=== PATIENT | female | born 1990 | race Caucasian/White ===

== ENCOUNTER 2017-01-19 12:29 | Emergency (ER) | payer OTHER ==
[~2017-01-19] VITALS: Ht 157.5 cm; Wt 61.2 kg
--- NOTE | 2017-01-19 12:36 | NUR ---
AAOX3, CAME TO ER C/O L L Q ABD PAIN WITH DYSURIA X 2 DAYS. DENIES N/V/D. RESP IS EVEN AND UNLABORED WITH NAD NOTED. SKIN IS WARM AND DRY. PLACED ON HOSPITAL GOWN, PLACED ON MONITOR. AWAITING MD FOR EVAL.
[2017-01-19] MEDS ORDERED: MORPHINE SULFATE INJ 4 MG/ML DISP.SYRIN ONE (12:41)
[2017-01-19] MEDS ORDERED: ONDANSETRON HCL/PF 4 MG/2 ML VIAL ONE (12:41)
[2017-01-19] MEDS ORDERED: IV NS 0.9% 1,000 ML ONE (12:41)
[2017-01-19] MEDS ORDERED: IV SET PRIMARY 1 EA INFUS.SET MC ONE (12:41)
[2017-01-19 12:42] LABS: BASOPHILS # (AUTO) 0.1 /CMM (0.0-0.2); EOSINOPHILS # (AUTO) 0.4 /CMM (0.0-0.7); EOSINOPHILS % (AUTO) 6.2 % (0.0-6.0); HEMATOCRIT 41 % (33-45); HEMOGLOBIN 14.2 g/dL (11.5-14.8); LYMPHOCYTES # (AUTO) 1.3 /CMM (0.8-4.8); LYMPHOCYTES % (AUTO) 21.6 % (20.0-44.0); MEAN CORPUSCULAR HEMOGLOBIN 30 PG (26.0-33.0); MEAN CORPUSCULAR HGB CONC 35 g/dl (31.0-36.0); MEAN CORPUSCULAR VOLUME 88 fL (82-100); MONOCYTES # (AUTO) 0.5 /CMM (0.1-1.30); MONOCYTES % (AUTO) 7.6 % (2.0-12.0); NEUTROPHILS # (AUTO) 3.6 /CMM (1.8-8.9); NEUTROPHILS % (AUTO) 63.6 % (43.0-81.0); PLATELET COUNT (AUTO) 223 /CMM (150-450); RDW COEFFICIENT OF VARIATION 12.9 (11.5-15.0); RED BLOOD CELL COUNT(AUTO) 4.69 MIL/uL (4.0-5.2); WHITE BLOOD COUNT (AUTO) 5.9 K/uL (4.3-11.0)
[2017-01-19 12:49] LABS: CALCIUM, SERUM 9.3 mg/dL (8.5-10.1); POTASSIUM 3.9 mmol/L (3.5-5.1)
[2017-01-19 12:50] LABS: APPEARANCE,URINE Clear (CLEAR); BILIRUBIN,URINE Negative (NEGATIVE); BLOOD, URINE Negative Ery/uL (NEGATIVE); COLOR,URINE Yellow (YELLOW); KETONES,URINE Negative (NEGATIVE); LEUKOCYTE ESTERASE ,URINE Negative (NEGATIVE); NITRITE, URINE Negative (NEGATIVE); PH,URINE 7.5 (5.0-8.0); PROTEIN,URINE 100 mg/dl (NEGATIVE); UGLUCOSE Negative (NEGATIVE); UROBILINOGEN,URINE 0.2 EU/dL (0.2)
[2017-01-19 12:51] LABS: PREGNANCY TEST URINE QUAL NEGATIVE (NEGATIVE)
[2017-01-19 12:55] LABS: BACTERIA,URINE Rare /HPF (None Seen); HYALINE CASTS, URINE Few /LPF (None Seen); RBC,URINE 0-2 /HPF (0-2); SQUAMOUS EPITHELIAL CELL,UR Few /HPF (None Seen)
[2017-01-19] MEDS ORDERED: MORPHINE SULFATE INJ 2 MG/ML DISP.SYRIN IV ONE (13:00)
[2017-01-19] MEDS ORDERED: ONDANSETRON HCL/PF 4 MG/2 ML VIAL IVP ONE (13:00)
[2017-01-19] MEDS ORDERED: IV NS 0.9% 1,000 ML BAG IV ONE (13:00)
--- NOTE | 2017-01-19 13:30 | NUR ---
Patient is resting comfortably in bed with eyes closed. Easily aroused. VSS
--- NOTE | 2017-01-19 14:25 | NUR ---
Patient is resting comfortably in bed with eyes closed. Easily aroused. VSS
--- NOTE | 2017-01-19 16:38 | NUR ---
IV removed. Catheter intact and site benign. Pressure and 4x4 applied to site. No bleeding noted.Patient discharged to home in stable condition. Written and verbal after care instructions given. Patient verbalizes understanding of instruction.
[2017-01-19 16:41] VITALS: BP 122/84
== END 2017-01-19 16:43 | disposition home or self-care (01) ==
LOC: ER 12:31
DX: R10.32 Left lower quadrant pain (principal)
CPT/HCPCS: 36415; 76856; 80048; 81001; 84703; 85025; 96361; 96374; 96375; 99285; A4606; J2270; J2405; J7030; Z7610; 81000-TC

== ENCOUNTER 2017-01-21 16:16 | Emergency (ER) | payer OTHER ==
--- NOTE | 2017-01-21 16:32 | NUR ---
PT REC'D TO ER C/O ABD PAIN WAS BEENING TX FOR UTI. SUNDAY WAS HERE FOR ABD PAIN NEGATIVE. LST NIGHT PAIN WAS 8/10 NOW ITS 10/20 PT WANTS TO SEE WHY SHE WAS HURTING LAST NIGHT AND FEELS BLOATED . VSS
[2017-01-21] MEDS ORDERED: IBUPROFEN 600 MG TABLET PO ONE ×2 (17:23→17:30)
[2017-01-21] MEDS ORDERED: MAGNESIUM CITRATE 296 ML BOTTLE ONE (17:23)
[2017-01-21 17:30] LABS: APPEARANCE,URINE Clear (CLEAR); BILIRUBIN,URINE Negative (NEGATIVE); BLOOD, URINE Moderate Ery/uL (NEGATIVE); COLOR,URINE Yellow (YELLOW); KETONES,URINE Negative (NEGATIVE); LEUKOCYTE ESTERASE ,URINE Trace (NEGATIVE); NITRITE, URINE Negative (NEGATIVE); PH,URINE 5.5 (5.0-8.0); PROTEIN,URINE Negative (NEGATIVE); UGLUCOSE Negative (NEGATIVE); UROBILINOGEN,URINE 0.2 EU/dL (0.2)
[2017-01-21] MEDS ORDERED: MAGNESIUM CITRATE 296 ML BOTTLE PO ONE (17:30)
[2017-01-21 17:35] LABS: BACTERIA,URINE Rare /HPF (None Seen); SQUAMOUS EPITHELIAL CELL,UR Moderate /HPF (None Seen)
--- NOTE | 2017-01-21 17:37 | NUR ---
PT HAS KIDNEY STONE GIVEN MOTRIN 600 MG PO FOR PAIN AND MAG CITRATE PT TOLERATED WELL VSS
--- NOTE | 2017-01-21 17:54 | NUR ---
PT SENT HOME WITH A STRAINER FOR PT. VERBALIZED UNDERSTANDING OF AFTERCARE INSTRUCTIONS.Patient discharged to home in stable condition. Written and verbal after care instructions given. Patient verbalizes understanding of instruction.
[2017-01-21 17:55] VITALS: BP 127/93
== END 2017-01-21 17:56 | disposition home or self-care (01) ==
LOC: ER 16:17
DX: N20.0 Calculus of kidney (principal)
CPT/HCPCS: 81000-TC; 87086-TC; A4606; Z7610